=== PATIENT | female | born 1995 | race Hispanic/Latino ===

== ENCOUNTER 2016-07-06 07:54 | Emergency (ER) | payer OTHER ==
[~2016-07-06] VITALS: Ht 160 cm; Wt 70.3 kg
--- NOTE | 2016-07-06 09:06 | ED GI/GU/ABDOMINAL COMPLAINT ---
History of Present Illness General Chief Complaint: Abdominal Pain/Flank Pain Stated Complaint: FEVER X4 DAYS, ABD PAIN, LYNCH Source: patient, family, old records Exam Limitations: no limitations Vital Signs & Intake/Output Vital Signs & Intake/Output Vital Signs Date Time Temp Pulse Resp B/P Pulse O2 O2 Flow FiO2 Ox Delivery Rate 07/06 1038 99.3 105 18 125/84 97 Room Air 07/06 1000 100 Room Air 07/06 0757 100.4 140 20 120/90 96 Room Air Allergies Coded Allergies: Sulfa (Sulfonamide Antibiotics) (Intermediate, RASH 07/06/16) Reconcile Medications Ciprofloxacin HCl (Cipro) 500 MG TABLET 1 TAB PO BID diarrhea Metronidazole (Flagyl) 500 MG TABLET 1 TAB PO TID diarrhea Triage Note: PT TO ED C/O ABD PAIN, FEVERS SINCE TUESDAY. DENIES N/V. C/O DIARRHEA. STATES FEVERS AT HOME, TEMP NOW 100.4. DENIES S/S. Triage Nurses Notes Reviewed? yes ? n Is pt currently ? No Onset: Abrupt Duration: day(s): (3), intermittent, waxing and waning Timing: recent history Quality/Severity: cramping, moderate Severity Numbers: 4 Location: generalized abdomen Radiation: no radiation Prior Abdominal Problems: none No Modifying Factors: none Associated Symptoms: diarrhea HPI: 20-year-old female with no medical history presents emergency room complaining of a 3 day history of crampy generalized nonradiating abdominal pain that comes on prior to having an episode of diarrhea which began 3 days ago. The patient denies any associated nausea or vomiting. She reports a subjective fevers at home, no cough congestion shortness of breath chest pain. She denies any abdominal pain at this time. No black or bloody stools. No recent back or on all use. No modifying factors or associated symptoms otherwise. Her last dose of Tylenol was yesterday no urinary symptoms patient denies chance of . Her mother states her stepdad recently had similar symptoms which resolved with antibiotics (ARLINE VELASQUEZ) Past History Travel History Traveled to [place] past 21 day No Medical History Any Pertinent Medical History? none Surgical History Surgical History: none Psychosocial History What is your primary language Swedish Tobacco Use: Never used ETOH Use: denies use Illicit Drug Use: denies illicit drug use Family History Hx Contributory? No (ARLINE VELASQUEZ) Review of Systems Review of Systems Constitutional: Reports: see HPI. All Other Systems: Reviewed and Negative Comments Review of systems: See HPI, All other systems negative. Constitutional, no chills fever, no malaise HEENT: No visual changes no sore throat no congestion, no ear pain Cardiovascular: No chest pain , no palpitation Skin, no jaundice no rashes, no change in skin Respiratory: No dyspnea no cough no sputum GI: No nausea no vomiting, diarrhea, : No dysuria No hematuria, no frequency, no discharge Muscle skeletal: No joint pain, no joint swelling, no back pain Neurologic: No numbness no headache Psych: No stress Heme/endocrine: No bruising no bleeding Immunology: No lymphadenopathy, (ARLINE VELASQUEZ) Physical Exam Physical Exam General Appearance: well developed/nourished, no apparent distress, alert, awake Gastrointestinal: soft Comments: Well-developed well-nourished person in no acute distress HEENT: Normal EENT exam; PERRL, EOMI, . HEAD is atraumatic. moist mucous membranes. Neck: Supple, normal range of motion Back: Nontender, no CVA tenderness. Full range of motion Cardiovascular: Tachycardic, regular rhythm no murmurs Respiratory: No respiratory distress. Patient speaking in full complete sentences. Breath sounds clear to auscultation bilaterally: NO W/R/R Abdomen: Soft, nontender nondistended, no appreciable organomegaly. Normal bowel sounds. No rebound/guarding Extremity: No edema, full range of motion of extremities Neuro: Alert oriented x3, motor sensory normal, There were no obvious focal neurologic abnormalities. Skin: No appreciable rash on exposed skin, skin is warm and dry. Psych: Mood and affect is normal, memory and judgment is normal. Core Measures ACS in differential dx? No Severe Sepsis Present: No Septic Shock Present: No (ARLINE VELASQUEZ) Progress Differential Diagnosis: appendicitis, biliary colic, bowel obstruction, colon cancer, cholecystitis, diverticulitis, ectopic , gastritis, hepatitis, hernia, inflamm bowel dis, kidney stone, PID/cervicitis, peptic ulcer, PUD/GERD, perforated viscous, SBO, threatened AB, UTI/pyelo Plan of Care: Orders Procedure Date/time Status BLOOD CULTURE 07/07 927 Active Saline Lock 07/06 904 Active RAPID VIRAL INFLUENZA A 07/06 904 Complete LIPASE 07/06 904 Complete COMPREHENSIVE METABOLIC PANEL 07/06 904 Complete CBC WITHOUT DIFFERENTIAL 07/06 904 Complete AMYLASE 07/06 904 Complete URINE 07/06 816 Complete URINALYSIS 07/06 816 Complete Laboratory Tests 07/06/16 1205: Lactic Acid Cancelled 07/06/16 0926: Anion Gap 8, Estimated GFR > 60, BUN/Creatinine Ratio 10.0, Glucose 102 H, Calcium 9.5, Total Bilirubin 1.0, AST 40 H, ALT 51, Alkaline Phosphatase 84, Total Protein 7.8, Albumin 4.3, Globulin 3.5, Albumin/Globulin Ratio 1.2, Amylase 47, Lipase 85, CBC w Diff MAN DIFF ORDERED, RBC 5.36, MCV 84.3, MCH 28.5 , RDW 13.1, MPV 7.6, Gran % 72.0, Lymphocytes % 8.3 L, Monocytes % 19.5 H, Eosinophils % 0.2, Basophils % 0 L, Absolute Granulocytes 5.7, Segmented Neutrophils 53, Band Neutrophils 15 H, Absolute Lymphocytes 0.7 L, Lymphocytes 12 L, Monocytes 20 H, Absolute Monocytes 1.5 H, Absolute Eosinophils 0, Absolute Basophils 0, Platelet Estimate VERIFIED BY SMEAR, Polychromasia , PUBS MCHC 33.9 07/06/16 08: Urine Color MAY, Urine Clarity HAZY H, Urine pH 7.0, Ur Specific [place] 1.015, Urine Protein 100 H, Urine Ketones 40 H, Urine Nitrite NEG, Urine Bilirubin NEG@ICTO, Urine Urobilinogen 0.2, Ur Leukocyte Esterase NEG, Ur Microscopic SEDIMENT EXAMINED, Urine RBC 10-15 H, Urine WBC 1-3 H, Ur Epithelial Cells MOD H, Urine Bacteria MANY H, Urine Mucus RARE, Urine Hemoglobin MOD H, Urine Glucose NEG, Urine Test NEGATIVE Microbiology 07/06 953 NASOPHARYN: Influenza Virus A & B Rapid Smear - COMP 07/06 944 BLOOD: Blood Culture - RECD Labs ordered old Deloris. Patient noted be tachycardic IV fluids Toradol 30 IV ordered. Patient appears in no apparent distress at this time despite vitals On repeat evaluation patient is resting comfortably discussed with her all her labs to date denies nausea or pain. She's had no episodes of diarrhea in the department patient's heart rate fever responded with fluids Toradol do not believe the patient requires a CAT scan at this time given her exam remains unremarkable, which both the patient and her mother are in agreement with I discussed wiTH dr sainz all the pts labs and history- he agrees with plan we' ll send patient home with stool culture cup Cipro Flagyl given bandemia. I discussed with the patient and her mother at length all of their results. I had an extensive conversation regarding need for close follow up with their primary care physician this week as well as return precautions. I answered all of their questions, they feel comfortable with the plan and follow-up care. I discussed the medications that they will receive with the patient. I gave them signs and symptoms that could indicate an adverse reaction. I have advised them to limit their activities until they can see how they respond to the medication. (ARLINE VELASQUEZ) Initial ED EKG: none (ARLINE VELASQUEZ) Departure Departure Time of Disposition: 1035 Disposition: HOME OR SELF CARE Condition: Stable Clinical Impression Primary Impression: Diarrhea Secondary Impressions: Fever Referrals: ASHISH EAGLE,DANIEL Choudhury (PCP/Family) Additional Instructions: follow up with your pmd this week. bland diet, clear liquids advance as tolerated. cipro/flagyl as directed. tylenol or motrin every 4-6 hours as needed. follow up as an outpatient with stool culture as discussed. return to the ER at anytime sooner with any concerns or worsening of your symptoms prescriptions sent [facility] Departure Forms: Customer Survey General Discharge Information Prescriptions: Current Visit Scripts Ciprofloxacin HCl (Cipro) 1 TAB PO BID #14 TAB Metronidazole (Flagyl) 1 TAB PO TID #21 TAB (ARLINE VELASQUEZ) PA/[employer] Co-Sign Statement Statement: ED Attending supervision documentation- [] I saw and evaluated the patient. I have also reviewed all the pertinent lab results and diagnostic results. I agree with the findings and the plan of care as documented in the PA's/[employer] OILER's documentation. [x] I have reviewed the ED Record and agree with the PA's/[employer] OILER's documentation. [] Additions or exceptions (if any) to the PAs/[employer] OILER's note and plan are summarized below: [] (YUMIKO SAINZ DO)
[2016-07-06 09:40] LABS: ABSOLUTE BASOPHIL COUNT 0 /CUMM (0.0-0.2); ABSOLUTE EOSINOPHIL COUNT 0 /CUMM (0.0-0.7); ABSOLUTE GRANULOCYTE CT 5.7 /CUMM (1.4-6.5); ABSOLUTE LYMPH COUNT 0.7 /CUMM (1.2-3.4); ABSOLUTE MONOCYTE COUNT 1.5 /CUMM (0.10-0.60); BASOPHIL % 0 % (0.0-2.0); EOSINOPHIL % 0.2 % (0-5); HEMATOCRIT 45.1 % (37-47); MEAN CORPUSCULAR HGB 28.5 PG (27.0-31.0); MEAN CORPUSCULAR HGB CONC 33.9 G/DL (33.0-37.0); MEAN CORPUSCULAR VOLUME 84.3 FL (81.0-99.0); MEAN PLATELET VOLUME 7.6 FL (7.4-10.4); PLATELET COUNT 261 /CUMM (130-400); RBC DISTRIBUTION WIDTH 13.1 % (11.5-14.5); RED BLOOD CELL CT 5.36 /CUMM (4.20-5.40); WHITE BLOOD CELL COUNT 7.9 /CUMM (4.8-10.8)
[2016-07-06 10:38] VITALS: BP 125/84
[2016-07-06] MEDS ORDERED: FLAGYL500 MG PO (10:39)
[2016-07-06] MEDS ORDERED: CIPRO500 M1 PO (10:39)
== END 2016-07-06 10:55 ==
LOC: ERH 07:54
PROVIDERS: Physician Assistant Medical
DX: R19.7 Diarrhea, unspecified (principal); R50.9 Fever, unspecified
CPT/HCPCS: 81001; 81025; 87040; 87804; 87804-59; 96361; 96374; J1885